=== PATIENT | male | born 1975 | race Caucasian/White ===

== ENCOUNTER 2016-06-18 07:57 | Emergency (ER) | payer MEDICAID ==
[~2016-06-18] VITALS: Ht 162.6 cm; Wt 95.3 kg
--- NOTE | 2016-06-18 08:08 | NUR ---
PT ASSISTED TO BED 7 AT THIS TIME.
[2016-06-18 08:10] VITALS: BP 144/93
--- NOTE | 2016-06-18 08:17 | NUR ---
PT CAME TO ED WITH C/O MOHAN LEG BITES, VERY PAINFUL AND MAKING IT HARD TO AMBULATE. PT REPORTS FOR THE LAST WEEK, HE'S NOTICED THESE BITES, NOW SWOLLEN AND RED IN COLOR. DENIES ANY FEVERS/CHILLS. DENIES HAVING DIABETES OR ANY MEDICAL HISTORY. WAITING FOR ER MD MONTEZ.
--- NOTE | 2016-06-18 08:29 | NUR ---
DR MELGOZA IN ROOM FOR EXAM
--- NOTE | 2016-06-18 08:48 | NUR ---
Patient discharged with v/s stable. Written and verbal after care instructions given and explained. Patient alert, oriented and verbalized understanding of instructions. Wheel Chair Assisted with to car. All questions addressed prior to discharge. ID band removed. Patient advised to follow up with PMD. Rx of BACTRIM, MOTRIN, TRAMADOL given. Patient educated on indication of medication including possible reaction and side effects. Opportunity to ask questions provided and answered.
[2016-07-02] MEDS ORDERED: LEVAQUIN750 MG PO (14:08)
[2016-07-02] MEDS ORDERED: CLEOCIN HCL300 MG PO (14:10)
[2016-07-02] MEDS ORDERED: FLORASTOR250 MG PO (14:11)
[2016-07-02] MEDS ORDERED: NORCO 5/325 MG1 TAB PO (14:16)
[2016-07-02] MEDS ORDERED: LIPITOR20 MG PO (16:05)
[2016-07-02] MEDS ORDERED: ASPIRIN81 M1 PO (16:05)
== END 2016-06-18 08:48 | disposition home or self-care (01) ==
LOC: MED 07:57
DX: S80.861A Insect bite (nonvenomous), right lower leg, initial encounter (principal); S90.861A Insect bite (nonvenomous), right foot, initial encounter; L03.115 Cellulitis of right lower limb; R03.0 Elevated blood-pressure reading, without diagnosis of hypertension; W57.XXXA Bitten or stung by nonvenomous insect and other nonvenomous arthropods, initial encounter; Y93.89 Activity, other specified; Y92.89 Other specified places as the place of occurrence of the external cause; Y99.8 Other external cause status

== ENCOUNTER 2016-11-22 04:05 | Inpatient (IN) | payer MEDICAID ==
[~2016-11-22] VITALS: Ht 160 cm; Wt 95.3 kg
[~2016-11-22 04:05] MED LIST: ASPI81CT89 PO; ATOR20TA PO; CLIN300C2 PO; HYDR-4446 PO; SACC250C4 PO
[2016-11-22 04:17] VITALS: BP 142/90
--- NOTE | 2016-11-22 04:17 | NUR ---
41 Y/O M BIB W/C/O WOUND TO R ANKLE/ R FOOT, AND SWELLING TO R LOWER X MTH. PT STATES HAD SURGERY X MTH AGO HERE D/T ULCER AND CELLULITIS TO SAME LEG. PT SAYS WOUND HAS GOTTEN WORSE AND PAINFUL. Patient noted to have existing wounds upon arrival to ER. .Wound UNCOVERED, CULTURES DONE. Physician AT BEDSIDE.
[2016-11-22] MEDS ORDERED: fentaNYL 0.05 MG/ML VIAL IVP ONE (04:20)
[2016-11-22] MEDS ORDERED: NACL 0.9% 1,000 ML IV ONE (04:20)
--- NOTE | 2016-11-22 04:20 | NUR ---
PT WAS WHEELCHAIRED TO ER BED 06 WITH FAMILY
[2016-11-22 04:34] LABS: BASOPHILS # (AUTO) 0.2 K/uL (0.00-0.22); BASOPHILS % (AUTO) 1.3 % (0.0-2.0); EOSINOPHILS # (AUTO) 0.6 K/uL (0-0.4); HEMATOCRIT 48.5 % (36-52); HEMOGLOBIN 15.8 g/dL (12.0-18.0); LYMPHOCYTES # (AUTO) 3.1 K/uL (2.0-11.5); LYMPHOCYTES % (AUTO) 21.5 % (20.5-51.1); MEAN CORPUSCULAR HEMOGLOBIN 30 pg (27-31); MEAN CORPUSCULAR HGB CONC 33 g/dL (33-37); MEAN CORPUSCULAR VOLUME 92 fL (80-94); MONOCYTES # (AUTO) 0.7 K/uL (0.8-1.0); MONOCYTES % (AUTO) 4.7 % (1.7-9.3); NEUTROPHILS % (AUTO) 68.5 % (42.2-75.2); PLATELET COUNT (AUTO) 282 K/uL (140-450); RED BLOOD CELL COUNT(AUTO) 5.29 MIL/uL (4.20-6.10); RED CELL DISTRIBUTION WIDTH 12.7 % (11.6-13.7); WHITE BLOOD COUNT (AUTO) 14.6 K/uL (4.8-10.8)
--- NOTE | 2016-11-22 04:45 | NUR ---
PT TAKEN FOR CT SCAN.
[2016-11-22 04:52] LABS: INR 0.9 (0.8-1.2); PARTIAL THROMBOPLASTIN TIME 26.5 secs (22-35.6); PROTHROMBIN TIME 9.4 secs (10.8-13.4)
[2016-11-22 04:56] LABS: LACTIC ACID 0.9 mmol/L (0.4-2.0)
[2016-11-22 04:57] LABS: ANION GAP 12.1 (8-16); CALCIUM 8.4 mg/dL (8.5-10.1); CARBON DIOXIDE 27.8 mmol/L (21-32); CREATININE 1.1 mg/dL (0.7-1.3); POTASSIUM 3.9 mmol/L (3.5-5.1)
[2016-11-22 04:58] LABS: TOTAL BILIRUBIN 0.3 mg/dL (0.0-1.0)
[2016-11-22 04:59] LABS: ALBUMIN 3.6 g/dL (3.4-5.0); TOTAL PROTEIN, SERUM 8.5 g/dL (6.4-8.2)
--- NOTE | 2016-11-22 05:09 | NUR ---
PT BACK FROM CT SCAN.
--- NOTE | 2016-11-22 05:38 | NUR ---
PT RESTING IN BED, ON MONITOR, VSS. NO S/S OF DISTRESS NOTED AT THE MOMENT.
[2016-11-22] MEDS ORDERED: CLINDAMYCIN 900 MG in DEXTROSE 5% 100 ML IV ONE (06:20)
[2016-11-22] MEDS ORDERED: CLINDAMYCIN 900 MG/6 ML VIAL IV ONE (06:26)
--- NOTE | 2016-11-22 06:35 | NUR ---
PT RESTING IN BED, CURRENTLY RECEIVING IV MEDS, NO S/S 0F DISTRESS NOTED SO FAR.,VSS. WILL CONT TO MONITOR.
[2016-11-22] MEDS ORDERED: NACL 0.9% 1,000 ML IV SCH (06:48)
[2016-11-22] MEDS ORDERED: ONDANSETRON 4 MG/2 ML VIAL IM/IVP PRN (06:50)
[2016-11-22] MEDS ORDERED: MORPHINE SULFATE 2 MG/ML SYR IVP PRN (06:50)
[2016-11-22] MEDS ORDERED: ACETAMINOPHEN 325 MG TAB PO PRN (06:50)
[2016-11-22] MEDS ORDERED: HYDROcodone/APAP 7.5/325 MG 1 TAB PO PRN (06:50)
[2016-11-22] MEDS ORDERED: DOCUSATE SODIUM 100 MG GELCAP PO PRN (06:50)
--- NOTE | 2016-11-22 07:09 | NUR ---
Pt report given to BANG SHIPMAN. Transfer of care at this time.PT STABLE,CONT RECEIVING IV ANTIBIOTICS AND FLUIDS.
--- NOTE | 2016-11-22 07:24 | NUR ---
CALLED TELE TO GIVE REPORT;INFORMED ME TO CALL AGAIN AFTER 5 MINUTES BECAUSE BANG SALMON I S GETTING ENDORSEMENT;WILL CALL AFTER 5 MINUTES.
--- NOTE | 2016-11-22 07:42 | NUR ---
CALLED TELE TO GIVE REPORT;INFORMED ME BANG SALMON GOT CAUGHT UP WOTHE THE PT;THEY WILL CALL ME LATER;
[2016-11-22 07:43] LABS: MAGNESIUM 2.2 mg/dL (1.8-2.4); PHOSPHORUS 3.6 mg/dL (2.5-4.9); THYROID STIMULATING HORMONE 1.7 uIU/mL (0.34-3.74)
--- NOTE | 2016-11-22 07:43 | NUR ---
PT RESTING ON BED;NO ACUTE DISTRESS NOTED;WILL CONTINUE TO MONITOR PT.
--- NOTE | 2016-11-22 07:46 | NUR ---
Patient will be admitted to care of DR HURST. Admited to TELE. Will go to room 111 B. Belongings list completed. Report to BANG SALMON.
[2016-11-22 08:00] VITALS: BP 127/70
--- NOTE | 2016-11-22 08:00 | NUR ---
PATIENT ADMITTED TO THE UNIT FROM ER. PATIENT AWAKE, ALERT AND ORIENTED. NO S/S OF DISTRESS NOTED. NO C/O PAIN AT THIS TIME. NO SOB. PATIENT ON ROOM AIR. OPEN WOUND NOTED TO THE RIGHT FOOT. NO DISCHARGE NOTED. IV LINE TO THE RIGHT AC INTACT WITH IVF INFUSING WELL. PATIENT ON TELE MONITORING. BED LOWERED WITH CALL LIGHT WITHIN REACH. WILL CONTINUE TO MONITOR
--- NOTE | 2016-11-22 09:59 | NUR ---
PATIENT HAS BEEN SCREENED AND CATEGORIZED HIGH NUTRITION RISK. PATIENT WILL BE SEEN WITHIN 1-2 DAYS OF ADMISSION. 11/22/16-11/23/[address]
--- NOTE | 2016-11-22 11:25 | NUR ---
PATIENT REFUSES TO WEAR SCD
[2016-11-22 12:00] VITALS: BP 122/81
--- NOTE | 2016-11-22 12:00 | NUR ---
PATIENT SIGNS AMA. PATIENT SEEN BY DR OLIVAREZ. PATIENT INFORMED ABOUT THE RISKS OF SIGNING AMA. PATIENT VERBALIZED UNDERSTANDING
--- NOTE | 2016-11-22 12:25 | NUR ---
11/22/16 RD INITIAL ASSESSMENT COMPLETED PLEASE REFER TO NUTRITION ASSESSMENT UNDER CARE ACTIVITY FOR ESTIMATED NUTRITIONAL NEEDS. 1. RECOMMEND 500 MG OF VITAMIN C TO PROMOTE WOUND HEALING 2. WHEN MEDICALLY FEASIBLE, INITIATE PO DIET TO START ON CLEAR LIQUID DIET AND ADVANCE TOLERATED TO REGULAR DIET 3. RD TO FOLLOW-UP 2-3 DAYS; HIGH RISK MAI SOLANO RD
[2016-11-22] MEDS ORDERED: CLINDAMYCIN 900 MG in DEXTROSE 5% 100 ML IV SCH (13:00)
--- NOTE | 2016-11-23 08:06 | NUR ---
UNABLE TO SEE PATIENT, PATIENT WENT AMA 11/22/16.
[2016-11-23] MEDS ORDERED: ATORVASTATIN 20 MG TAB PO SCH (09:00)
[2016-11-23] MEDS ORDERED: ASPIRIN 81 MG TAB.CHEW PO SCH (09:00)
[2016-11-26 16:36] LABS: HEMOGLOBIN A1C 5.5 % (4.8-5.6); T4 (THYROXINE) 7.5 ug/dL (4.5-12.0)
== END 2016-11-22 12:00 | disposition left against medical advice (07) | DRG 383 ==
LOC: MED 04:05 → MTU 07:28
PROVIDERS: ADMIT Family Medicine; ATTEND Family Medicine
DX: L03.115 Cellulitis of right lower limb (principal); E83.51 Hypocalcemia; I73.9 Peripheral vascular disease, unspecified; F15.10 Other stimulant abuse, uncomplicated; E66.9 Obesity, unspecified; F12.90 Cannabis use, unspecified, uncomplicated; Z53.29 Procedure and treatment not carried out because of patient's decision for other reasons; L97.519 Non-pressure chronic ulcer of other part of right foot with unspecified severity; Z53.21 Procedure and treatment not carried out due to patient leaving prior to being seen by health care provider; F17.210 Nicotine dependence, cigarettes, uncomplicated; Z79.82 Long term (current) use of aspirin; Z79.899 Other long term (current) drug therapy; Z68.37 Body mass index [BMI] 37.0-37.9, adult; Z71.51 Drug abuse counseling and surveillance of drug abuser
CPT/HCPCS: 36415; 71010; 73610; 73630; 73700; 80053; 83036; 83605; 83735; 83880; 84100; 84436; 84443; 84479; 84484; 85025; 85610; 85730; 87040; 87070; 87186; 93005; 96361; 96365; 96375; 99285; J3010; J3490; J7030; J7060; Q0092

== ENCOUNTER 2022-10-21 23:09 | Inpatient (IN) | payer MEDICAID ==
[~2022-10-21] VITALS: Ht 162.6 cm; Wt 94.8 kg
[~2022-10-21 23:09] MED LIST changes: +ACET-8905 PO; +ASPI-1822 PO; -ASPI81CT89 PO; +FLOR250 PO; -HYDR-4446 PO; -SACC250C4 PO
[2022-10-21 23:17] VITALS: BP 139/82; PULSE 122; RESP 17; TEMP 100.2; O2SAT 97
--- NOTE | 2022-10-21 23:20 | NUR ---
TO LOBBY A/W BED AMBULATORY
--- NOTE | 2022-10-22 01:12 | NUR ---
Dr. Julian examining patient.
[2022-10-22] MEDS ORDERED: NACL 0.9% 2,000 ML IV ONE (01:15)
--- NOTE | 2022-10-22 01:19 | NUR ---
PT TAKEN TO BED 9
[2022-10-22] MEDS ORDERED: cefTRIAXone 1,000 MG VIAL ONE (01:27)
[2022-10-22 01:30] LABS: APPEARANCE,URINE SL CLOUDY (CLEAR); BILIRUBIN,URINE NEGATIVE (NEGATIVE); BLOOD, URINE TRACE-I (NEGATIVE); COLOR,URINE YELLOW (YELLOW); LEUKOCYTE ESTERASE ,URINE TRACE (NEGATIVE); NITRITE, URINE NEGATIVE (NEGATIVE); PH,URINE 5.5 (5.0-9.0); UGLUCOSE NEGATIVE (NEGATIVE)
--- NOTE | 2022-10-22 01:30 | NUR ---
Pt ambulatory from home with c/o LLE redness/swelling which has worsened throughout days. (+) fevers, chills, & diaphoresis. Denies N/V, SOB, CP. PMH: Denies
[2022-10-22 01:31] LABS: BASOPHILS # (AUTO) 0.1 K/uL (0.00-0.22); BASOPHILS % (AUTO) 0.5 % (0.0-2.0); EOSINOPHILS % (AUTO) 0.1 % (0.0-4.0); HEMATOCRIT 50.1 % (36-52); HEMOGLOBIN 16.8 g/dL (12.0-18.0); LYMPHOCYTES # (AUTO) 1.5 K/uL (2.0-11.5); LYMPHOCYTES % (AUTO) 5.8 % (20.5-51.1); MEAN CORPUSCULAR HEMOGLOBIN 31 pg (27-31); MEAN CORPUSCULAR HGB CONC 34 g/dL (33-37); MEAN CORPUSCULAR VOLUME 91.1 fL (80-94); MONOCYTES # (AUTO) 0.8 K/uL (0.8-1.0); MONOCYTES % (AUTO) 3.3 % (1.7-9.3); NEUTROPHILS # (AUTO) 22.7 K/uL (1.8-7.7); NEUTROPHILS % (AUTO) 90.3 % (42.2-75.2); PLATELET COUNT (AUTO) 242 K/uL (140-450); RED CELL DISTRIBUTION WIDTH 14.1 % (11.6-13.7)
[2022-10-22 01:38] LABS: WHITE BLOOD COUNT (AUTO) 25.1 K/uL (4.8-10.8)
[2022-10-22] MEDS ORDERED: ACETAMINOPHEN EXTRA STRENGTH 500 MG TAB PO ONE (01:40)
[2022-10-22] MEDS ORDERED: IBUPROFEN 600 MG TAB PO ONE (01:40)
[2022-10-22 01:49] LABS: ALBUMIN 3.8 g/dL (3.4-5.0); ANION GAP 12.3 (8-16); ASPARTATE AMINOTRANSFERASE 21 U/L (15-37); CHLORIDE 102 mmol/L (98-107); CREATININE 1.4 mg/dL (0.6-1.3); GFR ARICAN-AMERICAN 69 mL/min (>90); GLUCOSE 116 mg/dL (74-106); POTASSIUM 4.3 mmol/L (3.5-5.1); SODIUM SERUM 136 mmol/L (136-145); TOTAL BILIRUBIN 0.9 mg/dL (0.0-1.0); UREA NITROGEN, BLOOD 15 mg/dL (7-18)
--- NOTE | 2022-10-22 01:57 | NUR ---
X-Ray at bedside.
[2022-10-22] MEDS ORDERED: MORPHINE SULFATE 4 MG/ML SYR IVP ONE (03:45)
[2022-10-22] MEDS ORDERED: ONDANSETRON 4 MG/2 ML VIAL IM/IVP PRN (04:15)
[2022-10-22] MEDS ORDERED: POTASSIUM CHLORIDE 10 MEQ TABER PO PRN (04:15)
[2022-10-22] MEDS ORDERED: ZOLPIDEM 5 MG TAB PO PRN (04:15)
[2022-10-22] MEDS ORDERED: HYDROcodone/APAP 7.5/325 MG 1 TAB PO PRN (04:15)
[2022-10-22] MEDS ORDERED: DOCUSATE SODIUM 100 MG GELCAP PO PRN (04:15)
[2022-10-22] MEDS ORDERED: guaiFENesin DM 200/20 MG-10 ML 10 ML UDC PO PRN (04:15)
[2022-10-22] MEDS: NACL 0.9% 1,000 ML IV SCH ×2 (04:30→20:55)
[2022-10-22] MEDS ORDERED: PIPERACILLIN/TAZOBACTAM 3.375 GM VIAL IV ONE (06:03)
[2022-10-22] MEDS: PIPERACILLIN/TAZOBACTAM 3.375 GM in DEXTROSE 5% 50 ML IV SCH ×4 (06:15→23:50)
[2022-10-22] MEDS ORDERED: VANCOMYCIN 1GM/DEXT 5% PREMIX 200 ML IV SCH (07:00)
[2022-10-22 07:50] VITALS: RESP 17; O2SAT 93
--- NOTE | 2022-10-22 07:50 | NUR ---
RECEIVED REPORT FROM ER NURSE, PT ARRIVED VIA GURNEY. AMBULATED TO THE BED. PT IS STABLE, NO SIGN OF DISTRESS. ORIENTED TO THE NEW SURROUNDING. CALL LIGHT, BED MECHANICS, BATHROOM. WILL REVIEW AND CONTINUE POC.
[2022-10-22 08:00] VITALS: PULSE 79; RESP 17; O2SAT 93
--- NOTE | 2022-10-22 09:01 | NUR ---
PATIENT HAS BEEN SCREENED AND CATEGORIZED MODERATE NUTRITION RISK. PATIENT WILL BE SEEN WITHIN 3-5 DAYS OF ADMISSION. 10/25/22-10/27/[address]
[2022-10-22] MEDS: VANCOMYCIN 750 MG in NACL 0.9% 250 ML IV SCH ×2 (09:46→20:10)
[2022-10-22] MEDS: PANTOPRAZOLE 40 MG TABEC PO SCH (09:46)
--- NOTE | 2022-10-22 11:54 | NUR ---
DC PLANN[age] YRS OLD MALE PATIENT WAS ADMITTED FROM HOME WITH A DX OF SEPSIS. DUE TO LEFT FOOT CELLULITIS. PATIENT HAS NO MEDICAL HX. CXR SHOWED NO ACUTE ABNORMALITIES. XRAY OF LEFT FOOT SHOWED SOFT TISSUE SWELLING. BLOOD AND URINE CULTURE PENDING. ADMINISTERED IVF, IV ABX VANCOMYCIN AND ZOSYN. DC PLAN TO GO HOME WHEN STABLE. CM TO FOLLOW Addendum: 10/24/22 at 1346 by Cyndie Ford RN DC PLANNING: SEEN BY DR HAIR PODIATRY RECOMMENDED NO SURGICAL INTERVENTION, WBC TRENDING DOWN 16.1, TEMP 100.4 CONTINUED WITH IV ABX VANCOMYCIN, DIFLUCAN AND ZOSYN . CONSULTED WITH ID. DC PLAN TO GO HOME WHEN STABLE CM TO FOLLOW
[2022-10-22 16:00] VITALS: BP 151/93; PULSE 100; RESP 19; TEMP 97.5; O2SAT 93
--- NOTE | 2022-10-22 19:26 | NUR ---
ENDORSED PT TO STORE CLERK NURSE FOR CONTINUITY OF CARE. PT IS ASLEEP, AND DAUGHTER AT BEDSIDE. PT IS AFEBRILE, NO SIGN OF DISTRESS. CALL LIGHT WITHIN REACH.
--- NOTE | 2022-10-22 19:30 | NUR ---
VANCOMYCIN 0900 IS STILL PINK ON EMAR, CALLED PHARMACY AROUND 1300, THEY SAID THEY WILL CHANGE IT BUT STILL PINK ON MY EMAR FOR THE SHIFT CHANGE.
--- NOTE | 2022-10-22 19:30 | NUR ---
Patient's Plan of Care was discussed and reviewed with SE MACEDO.
--- NOTE | 2022-10-22 19:39 | NUR ---
RECEIVED REPORT FROM DAY SHIFT NURSE FOR CONTINUITY OF CARE. PT ASLEEP AT THIS TIME, RESTING COMFORTABLY. FAMILY AT BEDSIDE. POC WAS DISCUSSED WITH FAMILY. ENSURED CALL LIGHT WITHIN REACH AND SAFETY MEASURES IN PLACE. WILL MONITOR FREQUENTLY THROUGH OUT SHIFT.
[2022-10-22 20:00] VITALS: BP 107/50; PULSE 100; PULSE 104; RESP 19; RESP 20; TEMP 102.7; O2SAT 93
--- NOTE | 2022-10-22 20:30 | NUR ---
WAS INFORMED BY SE MACEDO THAT PATIENT HAD VANCOMYCIN DUE. CHECKED PATIENT'S LABS, NO TROPH HAD BEEN DRAWN YET. ADMINISTERED VANCOMYCIN TO PATIENT ORDERED ON EMAR. INFORMED SE MACEDO OF ADMINISTRATION.
[2022-10-22] MEDS: ACETAMINOPHEN 325 MG TAB PO PRN (20:39)
--- NOTE | 2022-10-22 20:41 | NUR ---
VITAL SIGNS TAKEN, PATIENT NOTED TO HAVE A FEVER OF 102.7. ADMINISTERED TYLENOL PO PRN FOR TEMPERATURE > 100.4. PT TOLERATED WELL. WILL PROVIDE FURTHER COOLING MEASURES AND REASSESS TEMPERATURE.
--- NOTE | 2022-10-22 21:00 | NUR ---
RECEIVED REPORT FROM SE MACEDO FOR CONTINUITY OF CARE. PT SITTING IN BED, JUST CAME BACK FROM REST ROOM. RESPIRATIONS EVEN AND UNLABORED ON RA. DENIES PAIN. TEMP AT 102.4. COOLING MEASURES APPLIED. POC DISCUSSED. PT VERBALIZED UNDERSTANDING. CALL LIGHT WITHIN REACH. SAFETY PRECAUTIONS IN PLACE.
--- NOTE | 2022-10-22 22:36 | NUR ---
Patient's Plan of Care was discussed and reviewed with CARPENTERS HELPER: DANIELA ECHAVARRIA
--- NOTE | 2022-10-22 23:56 | NUR ---
ADMINISTERED 0000 IVPB TO PATIENT. MEDICATION STARTED SUCCESSFULLY WITHOUT ANY ISSUES WITH IV. INFORMED WARRANTY MANAGER JERICHO OF ADMINISTRATION.
[2022-10-23] MEDS: ACETAMINOPHEN 325 MG TAB PO PRN ×4 (02:44→21:06)
--- NOTE | 2022-10-23 02:44 | NUR ---
PRN MED FOR TEMP 100.9 GIVEN. PT CONTINUOUSLY ON COOLING MEASURES.
--- NOTE | 2022-10-23 04:20 | NUR ---
RE-ASSESSED TEMP. 99.5. PT SLEEPING COMFORTABLY IN BED. NOTED VISIBLE CHEST RISE AND FALL.
--- NOTE | 2022-10-23 06:25 | NUR ---
PT SLEEPING, EASILY AROUSABLE BY VERBAL STIMULI. NO DISTRESS NOTED. ALL NEEDS MET THROUGHOUT SHIFT.
[2022-10-23 06:51] LABS: BASOPHILS # (AUTO) 0.1 K/uL (0.00-0.22); BASOPHILS % (AUTO) 0.4 % (0.0-2.0); EOSINOPHILS % (AUTO) 0.1 % (0.0-4.0); HEMATOCRIT 42.2 % (36-52); HEMOGLOBIN 14.3 g/dL (12.0-18.0); LYMPHOCYTES # (AUTO) 2.2 K/uL (2.0-11.5); LYMPHOCYTES % (AUTO) 10.1 % (20.5-51.1); MEAN CORPUSCULAR HEMOGLOBIN 31 pg (27-31); MEAN CORPUSCULAR HGB CONC 34 g/dL (33-37); MEAN CORPUSCULAR VOLUME 90.3 fL (80-94); MONOCYTES # (AUTO) 1.1 K/uL (0.8-1.0); MONOCYTES % (AUTO) 4.8 % (1.7-9.3); NEUTROPHILS # (AUTO) 18.7 K/uL (1.8-7.7); NEUTROPHILS % (AUTO) 84.6 % (42.2-75.2); PLATELET COUNT (AUTO) 187 K/uL (140-450); RED BLOOD CELL COUNT(AUTO) 4.68 MIL/uL (4.20-6.10); RED CELL DISTRIBUTION WIDTH 14.3 % (11.6-13.7); WHITE BLOOD COUNT (AUTO) 22.2 K/uL (4.8-10.8)
[2022-10-23] MEDS: PIPERACILLIN/TAZOBACTAM 3.375 GM in DEXTROSE 5% 50 ML IV SCH ×4 (06:59→23:12)
--- NOTE | 2022-10-23 07:02 | NUR ---
ADMINISTERED 0600 IVPB TO PATIENT. INFORMED HOOP MAKER HELPER MACHINE FLORSAN OF ADMINISTRATION.
--- NOTE | 2022-10-23 07:20 | NUR ---
RECEIVED PATIENT FROM PM NURSE FOR CONTINUATION OF CARE
--- NOTE | 2022-10-23 07:34 | NUR ---
GAVE BEDSIDE REPORT TO BANG BRYAN. PT IS STABLE.
[2022-10-23 08:00] VITALS: BP 120/63; PULSE 97; RESP 18; TEMP 99.3; O2SAT 96; O2SAT 97
[2022-10-23 08:29] LABS: ALBUMIN 2.6 g/dL (3.4-5.0); CARBON DIOXIDE 27.1 mmol/L (21-32); CREATININE 1.4 mg/dL (0.6-1.3); POTASSIUM 4.1 mmol/L (3.5-5.1); TOTAL BILIRUBIN 0.8 mg/dL (0.0-1.0)
[2022-10-23] MEDS: PANTOPRAZOLE 40 MG TABEC PO SCH (08:36)
[2022-10-23] MEDS: ATORVASTATIN 20 MG TAB PO SCH (08:37)
[2022-10-23] MEDS: ASPIRIN 81 MG TAB.CHEW PO SCH (08:37)
[2022-10-23] MEDS: VANCOMYCIN PER PHARMACY MC SCH (09:00)
--- NOTE | 2022-10-23 09:15 | NUR ---
FNS CONSULT HAS BEEN RECEIVED FOR WOUNDS/PRESSURE ULCER. PATIENT HAS BEEN RE-SCREENED HIGH RISK AND WILL BE SEEN WITHIN 1-2 DAYS OF RECEIVING THE FNS CONSULT. JOSE M BOS[address] RD
[2022-10-23] MEDS: VANCOMYCIN 1,000 MG in DEXTROSE 5% 250 ML IV SCH ×2 (11:04→20:12)
--- NOTE | 2022-10-23 13:37 | NUR ---
10/23/22 RD INITIAL ASSESSMENT COMPLETED PLEASE REFER TO NUTRITION ASSESSMENT UNDER CARE ACTIVITY FOR ESTIMATED NUTRITIONAL NEEDS. 1. CONTINUE REGULAR DIET TOLERATED 2. RD RECOMMENDS ALCIRA BID FOR WOUNDS WHICH WILL PROVIDE 160 CALORIES AND 5 GRAMS OF PROTEIN 3. RD TO FOLLOW-UP 7 DAYS, LOW RISK JOSE M BOSWELL, RD
--- NOTE | 2022-10-23 15:42 | NUR ---
Document Controller HAIR SPECIALIST met with both pt. and . Pt. was able to participate in this discharge planning assessment. and were friendly and good historians. Pt. stated he does not have a DPOA. HAIR SPECIALIST educated both of the DPOA and asked if they wanted the packets. Both replied yes. HAIR SPECIALIST will bring them to the room. Pt. has not worked for the past 5 years. works as a warehouse director. They reside with pts. mom. Pt. asked for bereavement resources as he is still grieving the loss of his dad from Covid 2 years ago. HAIR SPECIALIST will bring resources and educated pt on how to access mental health with his insurance. HAIR SPECIALIST will remain available as needed.
[2022-10-23 16:00] VITALS: BP 114/63; PULSE 97; RESP 18; TEMP 99.3; O2SAT 97
[2022-10-23] MEDS: NACL 0.9% 1,000 ML IV SCH ×2 (17:28→20:12)
[2022-10-23] MEDS ORDERED: FLUCONAZOLE 100 MG TAB PO SCH (18:58)
--- NOTE | 2022-10-23 19:25 | NUR ---
endorsed patient to pm nurse for continuation of care. endorsed medication to pm nurse ordered at [phone]
--- NOTE | 2022-10-23 19:30 | NUR ---
RECEIVED PT IN BED AWAKE,ALERT AND ORIENTED X 4, FAMILY MEMBERS AT THE BEDSIDE. IV LEAKING STARTED IV IN THE LEFT AC #22. DENIES PAIN. NO ACTE RESPIRATORY DISTRESS NOTED. SKIN WARM AND DRY TO TOUCH. RIGHT FOOT DRESSING CLEAN DRY AND INTACT. SAFETY PRECAUTIONS IN PLACE, CALL LIGHT IN REACH.
[2022-10-23 19:57] VITALS: BP 114/63; PULSE 98; RESP 18; TEMP 100.4; O2SAT 95
[2022-10-23 20:00] VITALS: PULSE 98; RESP 18; O2SAT 93
[2022-10-23 21:06] VITALS: TEMP 100.2
--- NOTE | 2022-10-23 21:06 | NUR ---
TEMP-100.2, TYLENOL GIVEN, COOLING MEASURES ONGOING.
[2022-10-23 23:28] VITALS: TEMP 98.2
--- NOTE | 2022-10-23 23:28 | NUR ---
CURRENT TEMP-98.2 TAKEN ORALLY.
--- NOTE | 2022-10-24 00:12 | NUR ---
PATIENT IS ASLEEP. BREATHING EVEN AND UNLABORED. CALL LIGHT IN REACH.
[2022-10-24 04:00] VITALS: BP 134/78; PULSE 91; RESP 18; TEMP 99; O2SAT 95
[2022-10-24] MEDS: PIPERACILLIN/TAZOBACTAM 3.375 GM in DEXTROSE 5% 50 ML IV SCH ×2 (05:04→13:01)
--- NOTE | 2022-10-24 06:28 | NUR ---
PATIENT IS ASLEEP. NO DISTRESS NOTED. ALL NEEDS ATTENDED TO. SAFETY PRECAUTIONS MAINTAINED DURING THE SHIFT, CALL LIGHT REMAINS WITHIN REACH.
[2022-10-24 07:04] LABS: BASOPHILS # (AUTO) 0.1 K/uL (0.00-0.22); BASOPHILS % (AUTO) 0.6 % (0.0-2.0); EOSINOPHILS # (AUTO) 0.1 K/uL (0-0.4); EOSINOPHILS % (AUTO) 0.6 % (0.0-4.0); HEMATOCRIT 42.5 % (36-52); HEMOGLOBIN 14.5 g/dL (12.0-18.0); LYMPHOCYTES # (AUTO) 1.9 K/uL (2.0-11.5); LYMPHOCYTES % (AUTO) 11.9 % (20.5-51.1); MEAN CORPUSCULAR HEMOGLOBIN 31 pg (27-31); MEAN CORPUSCULAR HGB CONC 34 g/dL (33-37); MEAN CORPUSCULAR VOLUME 89.6 fL (80-94); MONOCYTES # (AUTO) 0.9 K/uL (0.8-1.0); MONOCYTES % (AUTO) 5.5 % (1.7-9.3); NEUTROPHILS # (AUTO) 13.1 K/uL (1.8-7.7); NEUTROPHILS % (AUTO) 81.4 % (42.2-75.2); PLATELET COUNT (AUTO) 170 K/uL (140-450); RED BLOOD CELL COUNT(AUTO) 4.75 MIL/uL (4.20-6.10); WHITE BLOOD COUNT (AUTO) 16.1 K/uL (4.8-10.8)
[2022-10-24 07:05] LABS: ALBUMIN 2.3 g/dL (3.4-5.0); ANION GAP 12.7 (8-16); CARBON DIOXIDE 23.5 mmol/L (21-32); CREATININE 1.2 mg/dL (0.6-1.3); POTASSIUM 3.2 mmol/L (3.5-5.1); TOTAL BILIRUBIN 0.6 mg/dL (0.0-1.0)
[2022-10-24 08:00] VITALS: BP 147/68; PULSE 78; RESP 18; TEMP 99.5; O2SAT 96
[2022-10-24] MEDS: NACL 0.9% 1,000 ML IV SCH (09:25)
[2022-10-24] MEDS: ASPIRIN 81 MG TAB.CHEW PO SCH (09:26)
[2022-10-24] MEDS: PANTOPRAZOLE 40 MG TABEC PO SCH (09:26)
[2022-10-24] MEDS: ATORVASTATIN 20 MG TAB PO SCH (09:27)
[2022-10-24] MEDS: VANCOMYCIN 1,000 MG in DEXTROSE 5% 250 ML IV SCH (09:38)
[2022-10-24] MEDS: VANCOMYCIN PER PHARMACY MC SCH (09:38)
--- NOTE | 2022-10-24 11:39 | NUR ---
WOUND CARE NOTE: PT. SEEN BY DR. HAIR WITH ANTIFUNGAL ORDER. PT ADMITTED WITH NO OPEN WOUNDS. LLE CELLULITIS, ERYTHEMA,+3 EDEMA NO WEEPING SKIN, MULTIPLE STABLE SCABS TO MEETA-ANKLES AND DORSAL FOOT WITH LARGEST TO LATERAL ASPET OF FOOT 1X1.5CM. DR. VIGIL AT BEDSIDE, POC DISCUSSED WITH ORDERS LLE UNNA BOOT AND ELEVATED WITH PILLOWS. POC DISCUSSED WITH PT. PT. VERBALIZES UNDERSTANDING. POC DISCUSSED WITH PRIMARY RN DYLON. -WRAP LLE WITH UNNA BOOT FROM DORSAL FOOT UPWARD TO KNEE HI. WRAP WITH KERLIX ROLL AND KAYLAN BANDAGE WEEKLY -KEEL LLE ELEVATED WITH 2 PILLOWS WHEN IN BED REST.
--- NOTE | 2022-10-24 14:41 | NUR ---
AROUND 1415, PATIENT CALL NURSE AND STATE THAT HE WANTS SIGN DOCUMENT AND GO HOME. NURSE CONTACT ON-CALL MD AND FOLLOWING DR. VIGIL'S SUGGESTION, TRYING TO KEEP PATIENT STAY AND EXPLAIN THAT PATIENT COULD BY LEAVING HOSPITAL NOW WITHOUT COMPLETE MEDICAL TREATMENT. PATIENT STATE THAT HE WILL GO TO HIS "PRIMARY DOCTOR" AFTER GO HOME, BUT NOW HE JUST WANT GO HOME. PATIENT AWARE RISK AND BENEFIT OF AMA BUT STILL INSISTENT THAT HE WANTS SIGN IT AND GO HOME. ON-CALL PCP AND CHARGE NURSE INFORMED. AT 1445, PATIENT WALK OUT THE FACILITY AFTER NURSE REMOVE IV ABSCESS & WRIST BAND
[2022-10-31] MEDS ORDERED: NON ADHERENT DRESSING TP SCH (09:00)
== END 2022-10-24 14:35 | disposition left against medical advice (07) | DRG 720 ==
LOC: MED 23:09 → MMU 10-22 04:15 → MTU 10-22 07:34
PROVIDERS: ADMIT Student in an Organized Health Care Education/Training Program; ATTEND Student in an Organized Health Care Education/Training Program
DX: A41.9 Sepsis, unspecified organism (principal); N17.9 Acute kidney failure, unspecified; L03.116 Cellulitis of left lower limb; N39.0 Urinary tract infection, site not specified; R65.20 Severe sepsis without septic shock; Z53.29 Procedure and treatment not carried out because of patient's decision for other reasons; Z87.891 Personal history of nicotine dependence
CPT/HCPCS: 36415; 71045; 73620; 73700; 80053; 80202; 81001; 82550; 82948; 83605; 84484; 85025; 87040; 87081; 87086; 93005; 93971; 96365; 96374; 96375; 99285; 99291; J0696; J2270; J2543; J3370; J7030; J7060; Q0092